=== PATIENT | female | born 1955 | race Caucasian/White ===

== ENCOUNTER 2022-06-08 10:15 | Outpatient (RCR) | payer MEDICARE, BC, SELFPAY | END 2023-05-10 11:10 | disposition home or self-care (01) | PROVIDERS: Visit Provider Physician Assistant | DX: M25.551 Pain in right hip (principal); Z51.89 Encounter for other specified aftercare | CPT/HCPCS: 97110; 97140; 97162 ==

== ENCOUNTER 2022-10-04 15:00 | Outpatient (RCR) | payer MEDICARE, BC, SELFPAY | END 2022-12-16 11:19 | disposition home or self-care (01) | PROVIDERS: PCP Family Medicine; Visit Provider Family Medicine | DX: M25.551 Pain in right hip (principal); Z51.89 Encounter for other specified aftercare | CPT/HCPCS: 97110; 97140; 97162 ==

== ENCOUNTER 2023-01-09 06:13 | Day surgery (SDC) | payer MEDICARE, BC, SELFPAY ==
[2023-01-09 06:26] VITALS: BMI 32.9
[2023-01-09 06:30] VITALS: BP 126/74; PULSE 75; RESP 16; TEMP 37.1; O2SAT 96
[2023-01-09] MEDS: SODIUM CHLORIDE 0.9 % (FLUSH) 10 ML SYRINGE IVF (06:40)
[2023-01-09] MEDS: LACTATED RINGERS 1000 ML 1,000 ML 100 ML IV (06:40)
--- NOTE | 2023-01-09 07:07 | SUR.PREOP ---
Patient provided home covid negative results to RN.
--- NOTE | 2023-01-09 07:14 | W.ANESCHARGE ---
Anesthesia Charges Start Date/Time Anesthesia Start Date: 01/09/23 Anesthesia Start Time: 07:09 Stop Date/Time Anesthesia Stop Date: 01/09/23 Anesthesia Stop Time: 08:38
[2023-01-09] MEDS: BUPIVACAINE 0.5% 30 ML INJECTION (07:15)
--- NOTE | 2023-01-09 07:19 | CRLHL7_ITS ---
For Patients: As a result of the Cures Act, medical imaging exams and procedure reports are released immediately into your electronic medical record. You may view this report before your referring provider. If you have questions, please contact your health care provider. Indication: INTRA OP RIGHT HAMMER TOES Technique: One fluoroscopic image of the right foot. Fluoroscopic time 4.7 seconds. IMPRESSION: Fluoroscopic guidance for hammertoe correction involving the 2nd and 3rd toes. Dictated by Robin Staley MD @ 01/09/2023 9:39:53 AM (Electronically Signed)
--- NOTE | 2023-01-09 07:41 | SUR.OPER ---
TIME OUT PERFORMED PRIOR TO INJECTION OF THE LOCAL IN THE RIGHT FOOT AT 007:14.? ?PATIENT QUESTIONS ANSWERED SATISFACTORILY PREOPERATIVELY.? PATIENT BROUGHT TO OR #1 PER CART.? Patient positioned supine on OR #1 bed.? The perioperative?team supported arms bilaterally on arm boards.? Final approval of positioning by surgeon.?
--- NOTE | 2023-01-09 07:42 | W.ANESCHARGE ---
Anesthesia Charges Start Date/Time Anesthesia Start Date: 01/09/23 Anesthesia Start Time: 07:09 Stop Date/Time Anesthesia Stop Date: 01/09/23 Anesthesia Stop Time: 08:38
[2023-01-09 08:35] VITALS: BP 123/83; PULSE 70; RESP 16; TEMP 36.1; O2SAT 96
--- NOTE | 2023-01-09 08:37 | P.PCN_ITS ---
Procedure Note Date Seen: 01/09/23 Date of procedure: 01/09/23 Will [facility] bill your pro fee for this procedure?: No Pre-op diagnosis: Hammertoes digits 2 through 5 right Post-op diagnosis: same Procedure: hammertoe correction digits 2 through 5 right Procedure Description: Surgeon: Nasir Connor DPM Preoperative diagnosis: 1. Hammertoe deformity 2nd digit right 2. hammertoe deformity 3rd digit right 3. hammertoe deformity 4th digit right 4. hammertoe deformity 5th digit right Postop diagnosis: 1. Hammertoe deformity 2nd digit right 2. hammertoe deformity 3rd digit right 3. hammertoe deformity 4th digit right 4. hammertoe deformity 5th digit right Procedure: 1. Hammertoe Correction 2nd digit right 2. hammertoe correction 3rd digit right 3. Extensor and flexor tenotomy 4th digit right 4. Extensor tenotomy 5th digit right Anesthesia: Mac with local Hemostasis: Ankle tourniquet at 250 mm Hg Estimated blood loss: Less than 10mL Materials: 0.054 smooth K-wires x2 Complications: None apparent Indication for surgery: Patient was in clinic for ongoing painful hammertoe deformities digits 2 through 5 right foot. She has failed conservative care and wishes to proceed with surgical correction. I reviewed the procedure, recovery, expectations and potential complications of surgery. These include but are not limited to: Poor wound healing, infection, under correction, over correction, flail toe, potential need for future surgery, deep venous thrombosis, pulmonary embolism, potential . All questions answered and written consent obtained. Procedure: Patient's from the operative room placed supine position on operating table. IV sedation was initiated local anesthetic injected into the right foot. She was prepped and draped in a sterile fashion. Standard time-out protocol was followed. The right foot was exsanguinated and the tourniquet inflated. Linear incision was made over the PIPJ of the 2nd toe right foot. Incision was carried down through skin subcutaneous tissues. Transverse incision was made through the extensor tendon at the PIPJ and the medial and lateral collateral ligaments were released. An oscillating saw was used to remove the head of the proximal phalanx and the base of the middle phalanx. 0.054 smooth K-wire was introduced into the base of the middle phalanx driven out through the tip of the toe. Fusion site was held together and the K-wire driven retrogradely back into the proximal phalanx. C-arm confirmed position infusion site looked excellent. The Z-lengthening was then performed on the extensor tendon at the level of the MPJ. Wound was thoroughly irrigated normal sterile saline. K-wire was bent cut and capped. The extensor tendon was repaired with 4-0 Vicryl and the skin closed with 4-0 Prolene. Linear incision was made over the PIPJ of the 3rd toe right foot. Incision was carried down through skin subcutaneous tissues. Transverse incision was made through the extensor tendon at the PIPJ and the medial and lateral collateral ligaments were released. An oscillating saw was used to remove the head of the proximal phalanx and the base of the middle phalanx. 0.054 smooth K-wire was introduced into the base of the middle phalanx driven out through the tip of the toe. Fusion site was held together and the K-wire driven retrogradely back into the proximal phalanx. C-arm confirmed position infusion site looked excellent. The Z-lengthening was then performed on the extensor tendon at the level of the MPJ. Wound was thoroughly irrigated normal sterile saline. K-wire was bent cut and capped. The extensor tendon was repaired with 4-0 Vicryl and the skin closed with 4-0 Prolene. Small 1 cm incision was made between the 4th and 5th metatarsal necks. Blunt dissection performed with a hemostat and the extensor tendon 4th toe identified and brought through the incision. The tendon was then transected. Using hemostat we then isolated the extensor tendon the 5th toe and brought it through the incision. The tendon was then transected. This improved the overall position of the 4th and 5th toes. Fourth toe still had flexion deformity. Using a 6100 [place] blade stab incision made plantar 4th toe and the long flexor tendon transected toe improved position. Wounds irrigated with normal sterile saline. Dorsal incision closed with 4-0 Prolene. Sterile dressing was then applied and the tourniquet released. Capillary fill time returned all digits. Patient was transferred from OR to PACU with vital signs stable and vascular status intact. She will be placed into a postsurgical shoe. She is weight- bearing as tolerated. Both written and verbal postop plan instructions given. She is given oxycodone for pain. She will follow up in clinic in 2 days. Anesthesia: MAC and local Surgeon: Nasir Connor DPM Estimated blood loss (mL): 2 Condition: stable Disposition: same day
[2023-01-09 08:45] VITALS: BP 111/65; PULSE 63; RESP 16; O2SAT 96
[2023-01-09 09:00] VITALS: BP 111/69; PULSE 65; RESP 16; O2SAT 99
[2023-01-09 09:14] VITALS: BP 92/60; PULSE 62; RESP 16; TEMP 36.3; O2SAT 99
[2023-01-09] MEDS: HYDROCODONE-ACETAMIN 5-325 MG 1 TAB PO (09:29)
== END 2023-01-09 09:45 | disposition home or self-care (01) ==
PROVIDERS: PCP Family Medicine; Visit Provider Podiatrist
PROC: (CPT 28285; principal; 2023-01-09 07:15)
DX: M20.41 Other hammer toe(s) (acquired), right foot (principal)
CPT/HCPCS: 28285 ×4; 1480; 73620; 76000; A9270; J2250; J2704; J3010; J3490; J7120

== ENCOUNTER 2025-09-02 04:30 | Emergency (ER) | payer MEDICARE, BC, SELFPAY ==
[2025-09-02] VITALS (53 sets, daily range): BP systolic 107–175; BP diastolic 62–89; PULSE 72–129; RESP 12–24; TEMP 36.1–36.6; O2SAT 89–99; BMI 29.5
--- OUTSIDE RECORDS SUMMARY | 2025-09-02 04:32 | XMS_ITS | Clinical Summary ---
Author Organization [email or web address] Address [address] [place] [id number] Care Team Providers Care Director Of Retail Merchandising Name Role Phone Juan Servin MD Primary Care Provider Allergies No known active allergies Medications SUMAtriptan (IMITREX) 50 mg tabletIndicatio ns:Migraine syndrome Take 1 Tablet (50 mg) by mouth every 2 hours if needed for Migraine. Give at minimum 2hrs apart. Max Dose: 200mg per 24hrs. 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 Routine general medical exam ination at a health care facility 10/13/2010 Encounter for screening colonoscopy Encounters Date Type Department Care Team Description 07/25/2025 2:45 PM CDT Ancillary Procedure [facility] [address] [place] [address] 07/25/2025 Travel 07/21/2025 Travel 07/08/2025 2:40 PM CDT Office Visit [facility] [address] [place] [address] Juan Servin MD Headache 07/08/2025 Travel from Last 3 Months Immunizations Immunization Administration Dates Next Due COVID-19 vaccine (Moderna 100mcg/0.5mL) [facility] 12/30/2020,12/02/2020 COVID-19 vaccine (Pfizer-Bio NTech 30mcg/0.3mL) [facility] [place] 08/24/2021 Influenza, High-dose Inactivated 08/26/2024 Influenza, IIV3 (Age >=3 years) 10/13/2011,10/12,09/23/2009 Influenza, IIV4 08/24/2021, 0,08/22/2019,2017,11/26/2015 Influenza, IIV4 (=>6mos) MDV 07/03/2018,06/30/20 18 Influenza, Inactivated AIIV4 (Age 65+ Years) Preserv Free 07/13/2023,08/18/2022 Pneumococcal Conj 20-valent (Prevnar 20) 09/26/2022 Td (Age >=7 Years) 02/08/1991 Tdap 03/10/2015,09/30/2005 Zoster (Shingrix-RZV, recombinant) 02/04/2021, Family History Medical History Relation Name Comments Diabetes Brother 3 Hypertension Father Stroke Father Unknown Son Crohn's disease Cancer-breast No Family History Relation Name Status Comments Brother 1 Alive x5 Brother 2 x1 Brother 3 Father Maternal Grandfather Maternal Grandmother Mother Alive Paternal Grandfather Paternal Grandmother Sister Alive x2 Son Social History Tobacco Use Types Packs/Day Years Used Date Smoking Tobacco: Never Smokeless Tobacco: Never Tobacco Cessation:Counseling Given: Yes Alcohol Use Standard Drinks/Week Comments Yes 0 (1 standard drink = 0.6 oz pur e alcohol) rarely PHQ-2 Answer Date Recorded PHQ-2 TOTAL SCORE 0 09/30/2024 Social Connections Answer Date Recorded Do you often feel lonely or isolated from those around you? 0 09/30/2024 Alcohol Use Answer Date Recorded How often do you have a drink containing alcohol ? 1 07/08/2025 Average Number of Drinks Not on file 025 How often do you have five or more drinks on one occasion? 0 07/08/2025 Financial Resource Strain Answer Date R ecorded Difficulty of Paying Living Expenses 3 09/30/2024 Difficulty of Paying Living Expenses Not on file 09/30/2024 Food Insecurity Answer Date Recorded Do you worry your food will run out before you are able to buy more? 1 09/30/2024 Transportation Needs Answer Date Record ed Does lack of transportation keep you from medica l appointments? 1 09/30/2024 Does lack of transportation keep you from work, meetings or getting things that you need? 1 09/30/2024 Housing Stability Answer Date Recorded What is your housing situation today? 1 09/30/2024 Utilities Answer Date Recorded Do you have trouble paying f or utilities (for example, heat, electricity, water, phone)? 1 09/30/2024 Comments No Sex and Gender Information Value Date Recorded Sex Assigned at Not on file Legal Sex Female 6:30 AM ANIMAL SHELTER MANAGER Gender Identity Not on file Sexual Orientation Not on file Occupation Industry Job Start Date Job End Date [employer] Not on file Not on file Not on file Obstetrics History Para Term AB IAB SAB Ectopic Multiple Livin g Live Births 3 3 3 3 Date Outcome GA Total Labor Labor//3rd Weight Sex Type Anes PTL Mariana A1 A5 Name Clin Term Term Term Comments C section Last Filed Vital Signs Vital Sign Reading Time Taken Comments Blood Pressure 126/70 07/08/2025 3:07 PM CDT Pulse 92 07/08/2025 3:07 PM CDT Temperature 37.1 C (98.7 F) 05/17/2023 2:19 PM CDT Respiratory Rate 18 05/17/2023 2:19 PM CDT Oxygen Saturation 97% 04/09/2025 1:06 PM CDT Inhaled Oxygen Concentration - - Weight 99 kg (218 lb 4.1 oz) 07/08/2025 3:07 PM CDT Height 174 cm (5' 8.5) 09/30/2024 10:27 AM ANIMAL SHELTER MANAGER Body Mass Index 32.7 09/30/2024 10:27 AM ANIMAL SHELTER MANAGER Plan of Treatment Health Maintenance Due Date Last Done Comments Tetanus booster 03/10/2025 03/10/2015, 12/0 06/2005, 02/08/1991 Influenza Vaccine (#1) 2025 , 07/13/2023, 08/18/2022, Additional history exists BMI (ht and wt on same day) for age 18+ 09/30/2025 09/30/2024, 09/27/2023, 12/29/2022, Additional history exists Depression screening for age 12+ 09/30/2025 09/30/2024, 09/27/2023, 09/26/2022, Additional history exists Medicare Wellness for age 65+ 10/01/2025 09/30/2024, 09/27/2023, 09/26/2022 Mammogram for age 45-75 11/08/2025 11/08/19 25, 07/03/2023, 06/29/2023, Additional history exists Lipids for age 45-75 09/25/2029 09/25/2024, 09/20/2023, 09/19/2022, Additional history exists RSV vaccine for adults or (1 - 1-dose 75+ series) 2031 Colonoscopy through age 75 01/11/203201/10, 12/13/2011, 06/27/2007, Additional history exists Hepatitis C screening for age 18-79 Completed 01/15/2014 Zoster (shingles) series for age 50+ Completed 02/04/2021, 10/07/2020 DEXA/DXA scan for age 65+ Completed 2021, 10/31/2019, 08/14/2017 Pneumococcal series for age 50+ Completed 09/26/2022 Hepatitis B series for 19+ Aged Out N o longer eligible based on patient's age to complete this topic Procedures Procedure Name Priority Date/Time Associated Diagnosis Comments MR HEAD BRAIN WWO Routine 07/25/2025 3:2 7 PM CDT Migraine syndrome XR MAMMO SONIA BILAT SCREEN Routine 11/08/2024 8:59 AM ANIMAL SHELTER MANAGER Encounter for other screening for malignant neoplasm of breast LIPID PANEL W REFLEX MEASURED LDL Routine 09/25/2024 8:48 AM ANIMAL SHELTER MANAGER Mixed hyperlipidemia COLONOSCOPY 01/10/2022 8:57 AM CDT XR DXA BONE DENSITY 2 SITES AXIAL Routine 12/02/2021 1:37 PM ANIMAL SHELTER MANAGER Ductal carcinoma in situ (DCIS) of left breast ANTI HCV Routine 01/15/2014 10:37 AM CDT Need for hepatitis C screening test from Last 3 Months or Most Recently Relevant to Health Maintenance Results * MR HEAD BRAIN WWO (07/25/2025 3:27 PM CDT) Anatomical Region Laterality Modality BRAIN, HEAD Magnetic Resonan ce 07/26/2025 9:00 AM CDT Impressions 07/26/2025 9:00 AM CDT 1. No acute intracranial abnormality 2. Stable dysgenesis of the corpus callosum. 3. No abnormal enhancement or enhancing lesions Dictated by Cristhian Mendez MD @ 07/26/2025 9:00:05 AM (Electronically Signed) Narrative 07/26/2025 9:00 AM CDT For Patients: As a result of the Cures Act, medical imaging exams and procedure reports are released immediately into your electronic medical record. You may view this report before your referring provider. If you have questions, please contact your health care provider. INDICATION: Migraine headaches. COMPARISON: 10/10/2018. TECHNIQUE: Multiplanar T1, T2, FLAIR and diffusion-weighted imaging.. Post gadolinium T1 weighted sequences. Gadolinium 19 cc IV FINDINGS: Stable dysgenesis of the corpus callosum. Remainder of the brain parenchyma morphology is normal. No abnormal ventricular dilatation. Few scattered foci of T2 signal within the white matter both supra hemispheres a nonspecific and may represent chronic deep white matter small ischemic changes. No intracranial hemorrhage. Intracranial vascular flow voids are grossly preserved. No mass effect or midline shift. No restricted diffusion to suggest acute ischemia. No susceptibility artifact of remote hemorrhage No abnormal enhancement or enhancing lesions. Bilateral orbits are unremarkable. Normal appearing sella. Visualized paranasal sinuses mastoid air cells are unremarkable. Procedure Note Cristhian Mendez MD, PhD - 07/26/2025 For Patients: As a result of the Cures Act, medical imagingexams and procedure reports are released immediately into your electronicmedical record. You may view this report before your referring provider.If you have questions, please contact your health care provider. INDICATION: Migraine headaches. COMPARISON: 10/10/2018. TECHNIQUE: Multiplanar T1, T2, FLAIR and diffusion-weighted imaging.. Post gadoliniumT1 weighted sequences. Gadolinium 19 cc IV FINDINGS: Stable dysgenesis of the corpus callosum. Remainder of the brainparenchyma morphology is normal. No abnormal ventricular dilatation. Few scattered foci of T2 signal within the white matter both suprahemispheres a nonspecific and may represent chronic deep white mattersmall ischemic changes. No intracranial hemorrhage. Intracranial vascular flow voids are grosslypreserved. No mass effect or midline shift. No restricted diffusion to suggest acute ischemia. No susceptibility artifact of remote hemorrhage No abnormal enhancement or enhancing lesions. Bilateral orbits are unremarkable. Normal appearing sella. Visualized paranasal sinuses mastoid air cells are unremarkable. IMPRESSION: 1. No acute intracranial abnormality 2. Stable dysgenesis of the corpus callosum. 3. No abnormal enhancement or enhancing lesions Dictated by Cristhian Mendez MD @ 07/26/2025 9:00:05 AM (Electronically Signed) Juan Servin MD MR Final R esult * XR MAMMO SONIA BILAT SCREEN (11/08/2024 8:59 AM ANIMAL SHELTER MANAGER) Anatomical Region Laterality Modality BREASTS, Breast Left, Breast Right Bilateral Mammography Impressions 11/08/2024 2:11 PM ANIMAL SHELTER MANAGER There is no radiographic evidence for malignancy. Recommend annual mammograms. MAMMOGRAM ASSESSMENT: ACR 2 Benign PATIENTS: You will also receive a letter with your examination results in an easy to read format. If you have questions about your results, please contact your referring provider. Narrative 11/08/2024 2:11 PM ANIMAL SHELTER MANAGER For Patients: As a result of the 21st Century Cures Act, medical imaging exams and procedure reports are released immediately into your electronic medical record. You may view this report before your referring provider. If you have questions, please contact your health care provider. XR MAMMO SONIA BILAT SCREEN [[id number]] CLINICAL HISTORY: This is an asymptomatic 69 y.o. patient. INDICATION FOR EXAM: Mammogram Screening. TECHNIQUE: CC & MLO views were obtained. This study was evaluated with the assistance of Computer-Aided Detection. Breast Tomosynthesis was used in interpretation. COMPARISON FILMS: Yes 06/29/23 FINDINGS: The breasts are heterogeneously dense, which may obscure small masses. No suspicious masses or microcalcifications. There are benign appearing calcifications., There are post surgical changes of right breast, and Post biopsy changes of left breast. Juan Servin MD MAMMO Final R esult * (ABNORMAL) LIPID PANEL W REFLEX MEASURED LDL (09/25/2024 8:48 AM ANIMAL SHELTER MANAGER) [facility] CHOLESTEROL, TOTAL 208(H) <200 mg/dL [facility] HDL CHOLESTEROL 65 > OR = 50 mg/dL [facility] TRIGLYCERIDES 93 <150 mg/dL [facility] LDL-CHOLESTEROL 124(H) mg/dL (calc) [facility] Comment: Reference range: <100 Desirable range <100 mg/dL for primary prevention; <70 mg/dL for patients with CHD or diabetic patients with > or = 2 CHD risk factors. LDL-C is now calculated using the Jerrell calculation, which is a validated novel method providing better accuracy than the Friedewald equation in the estimation of LDL-C. Deng SS et al. YUDELKA. 2013;310(19): 8605-2182 (http://education.Bettyvision/faq/UNE396) CHOL/HDLC RATIO 3.2 <5.0 (calc) [facility] NON HDL CHOLESTEROL 143(H) <130 mg/dL (calc) [facility] Comment: For patients with diabetes plus 1 major ASCVD risk factor, treating to a non-HDL-C goal of <100 mg/dL (LDL-C of <70 mg/dL) is considered a therapeutic option. Blood BLOOD SPECIMEN / Unknown 09/25/2024 8:48 AM ANIMAL SHELTER MANAGER 09/25/2024 8:49 AM ANIMAL SHELTER MANAGER Narrative [facility] [facility] - 09/26/2024 4:00 AM ANIMAL SHELTER MANAGER FASTING:UNKNOWN FASTING: UNKNOWN Juan Servin MD CHEMISTRY Final R esult [employer] [facility] [address] [place] [address], [facility] [address] [place] [address] * COLONOSCOPY (01/10/2022 8:57 AM CDT) 01/10/2022 8:57 AM CDT Narrative Transcriptions Shady Ding MD - 01/10/2022 9:54 AM CDT Patient Name: Elizabeth Orellana Procedure Date: 01/10/2022 Gender: Female Date of : 1955 Admit Type: Ambulatory Procedure: Colonoscopy Proceduralist: [facility] Indications/Pre-Op Diagnosis: Screening for colorectal malignantneoplasm Medications: Propofol per Anesthesia, GeneralAnesthesia Procedure Description: The patient had risks, benefits and alternatives explained to andgave informed consent. The patient had a stable cardiopulmonary status and judged an adequate candidate for conscious sedation. The colonoscope was passed through the anus and advanced to thececum, identified by appendiceal orifice and ileocecal valve. Thecolonoscopy was performed without difficulty. The patient tolerated the procedure well. The quality of the bowel preparation was fair. The ileocecal valve, appendiceal orifice, and rectum were photographed. Complications: No immediate complications. Estimated Blood Loss & Specimen: Estimated blood loss: none. Specimen collected - None Findings: The perianal and digital rectal examinations were normal. The colon (entire examined portion) appeared normal. The retroflexed view of the distal rectum and anal verge was normaland showed no anal or rectal abnormalities. Retroflexion in the right colon was performed. Impressions/Post-Op Diagnosis: - Preparation of the colon was fair. - The entire examined colon is normal. - No specimens collected. Recommendation: - Discharge patient to home. - Resume previous diet. - Continue present medications. - Repeat colonoscopy in 10 years for surveillance. Moderate Sedation: See the other procedure note for documentation of moderate sedationwith intraservice time. Shady Ding, 01/10/2022 9:54:18 AM This report has been signed electronically. Note Initiated On: 01/10/2022 8:57 AM us Shady Ding MD PROCEDURE ORD Final Res ult * XR DXA BONE DENSITY 2 SITES AXIAL (12/02/2021 1:37 PM ANIMAL SHELTER MANAGER) Anatomical Region Laterality Modality Spine, HIPS, HIPL, HIPR Computed Radiography Impressions 12/02/2021 4:54 PM ANIMAL SHELTER MANAGER Normal bone density. No significant change in bone density compared to 2020. RECOMMENDATIONS: The National Osteoporosis Foundation recommends pharmacologic treatment for patients with T-scores of -2.5 or less, patients with prior history of fragility fractures, or patients with 10-year probability of greater than 3% at hips or greater than 20% of suffering major osteoporotic fractures. Recommend continued optimization of calcium and vitamin D intake through dietary means and/or supplementation and regular exercise. Repeat scan recommended in 2 years. Narrative 12/02/2021 4:54 PM ANIMAL SHELTER MANAGER For Patients: Results are automatically released to your [email or web address] ([email or web address]) account once available, in compliance with federal regulations. This means that you may see your results before your provider has had a chance to review them. Please allow 2-3 business days for your provider to comment on the results. XR DXA Bone Mineral Density (BMD) EXAM LOCATION: [address] [id number] PATIENT NAME: Elizabeth Romero Mode DATE OF : 1955 EXAM DATE: 12/02/2021 REQUESTING PROVIDER: Katiana Serrano NP GENDER AT : female HEIGHT: 5' 9 (05/04/2021) WEIGHT: 219 lb (08/24/2021) MENOPAUSAL STATUS: Postmenopausal RACE/ETHNICITY: White RISK FACTORS: Aromatase Inhibitor CURRENT MEDICATION FOR BONE LOSS: NONE INDICATION: Post-Menopause COMPARISON DATE(S): 2019 DXA scans are compared to prior studies for a patient only when the two (or more) studies were performed on the same scanner. It is not possible to compare data generated on one scanner to data from another because there are not standards in DXA equipment. This applies even if the two scanners are made by the same web content manager. PROCEDURE: Dual-energy x-ray absorptiometry performed with routine technique. Reporting is completed in the form of a T-score. The T-score represents the standard deviation from peak bone mass based on young healthy adult. A Z-score is used for diagnosis in premenopausal women, and for men under the age of 50. FINDINGS: RESULT LUMBAR SPINE L1 - L4 BMD: 1.207 g/cm2 T-Score: + 0.3 Change from prior in 2020: Increase 2.8%. RESULTS FEMUR Left femoral neck BMD: 0.980 g/cm2 T-Score: - 0.4 Change from prior in 2020: Increase 2.6%. Right femoral neck BMD: 1.046 g/cm2 T-Score: + 0.1 Change from prior in 2020: Decrease 0.2%. Left hip BMD: 1.042 g/cm2 T-Score: + 0.3 Change from prior in 2020: Increase 2.9%. Right hip BMD: 1.098 g/cm2 T-Score: + 0.7 Change from prior in 2020: Increase 0.2%. WHO criteria: Normal: T-score at or above -1 SD Osteopenia: T-score between -1.1 and -2.4 SD Osteoporosis: T-score at or below -2.5 SD us Katiana Serrano NP DEXA Final Result * ANTI HCV [[id number]] (01/15/2014 10:37 AM CDT) ANTI HCV Non-reacti ve [facility] Blood specimen (specimen) BLOOD SPECIMEN / Unknown 01/15/2014 10:37 AM CDT 01/15/2014 10:29 AM CDT us Juan Servin MD SEND OUTS Final R esult [facility] INTERNAL ZIP [id number] [place] [phone] from Last 3 Months or Most Recently Relevant to Health Maintenance Insurance [employer] [place] [employer] [place] [employer] [place] ONLY MEDICARE PART B HB ONLY [employer] [place] [employer] ONLY WORKERS COMP Advance Directives * Full Code (Latest Code Status on File) Date Activated Date Inactivated Comments 01/10/2022 7:59 AM 01/10/2022 1:10 PM Question Answer Comments Code Status Discussion: Per Existing Order * Full Code Date Activated Date Inactivated Comments 05/31/2017 6:27 PM 05/31/2017 11:00 PM * Full Code Date Activated Date Inactivated Comments 05/31/2017 9:03 AM 05/31/2017 6:09 PM Care Teams Director Of Retail Merchandising Relationship Specialty Start Date End Date Juan Servin MD [address] [place] [address] PCP - General 12/11/12
--- NOTE | 2025-09-02 05:11 | ED.ABDPAIN ---
HPI - Abdominal Pain General Time Seen by Provider: 05:12 Date Seen: 09/02/25 Chief Complaint: Abdominal Pain Stated Complaint: severe abdominal pain Time Seen by Provider: 09/02/25 04:58 Source: patient and RN notes reviewed Mode of arrival: ambulatory Limitations: no limitations History of Present Illness HPI narrative: This 69-year-old female is ambulatory to the ER with complaint of severe left abdominal and side pain. Monday night around 11:00 p.m. she developed left lower quadrant pain radiating to her flank and low back. She has had nausea and vomiting with this. There has been no fevers. She has had normal urination, normal bowel habits. She tried Motrin around 2:00 a.m. without any relief. Pain is reportedly 10/10. She has not had any history of kidney stones but did consider that that might be the cause of her symptoms. She has had no abdominal surgery before. MD elicited complaint: abdominal pain Related Data Home Medications ?Medication ?Instructions ?Recorded ?Confirmed hydrocortisone 2.5 % topical topical 09/02/25 ointment mupirocin 2 % topical ointment 1 applic topical BID-TID 09/02/25 09/02/25 sumatriptan succinate 50 mg tablet 50 mg PO Q2H PRN migraine 09/02/25 09/02/25 Allergies Allergy/AdvReac Type Severity Reaction Status Date / Time No Known Drug Allergies Allergy Verified 01/09/23 06:26 Review of Systems Status of ROS Reports: 6 or more systems reviewed and unremarkable except as noted in History and below PFSH PFS Medical History Menopausal state ?N95.1 - Menopausal and female climacteric states (ICD-10) Macular degeneration ?H35.30 - Unspecified macular degeneration (ICD-10) 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 - Intraductal carcinoma in situ of left breast (ICD-10) Surgical History Hx of arthroscopy of right knee ?Z98.890 - Other specified postprocedural states (ICD-10) Hx of inguinal hernia repair ?Z98.890 - Other specified postprocedural states (ICD-10) ?Z87.19 - Personal history of other diseases of the digestive system (ICD-10) Hx of hysterectomy ?Z90.710 - Acquired absence of both cervix and uterus (ICD-10) Hx of section ?Z98.891 - History of uterine scar from previous surgery (ICD-10) History of lumpectomy of left breast ?Z98.890 - Other specified postprocedural states (ICD-10) Hx of bladder repair surgery ?Z98.890 - Other specified postprocedural states (ICD-10) Social History Smoking Status: Never smoker How often do you have a drink containing alcohol: monthly or less How many standard drinks containing alcohol do you have on a typical day: 1 or 2 How often do you have six or more drinks on one occasion: Never AUDIT-C Alcohol total score: 1 Non-prescribed substance use: denies use Caffeine: Yes (coffee) Are you using contraception or practicing any form of control: No (menopause/hyst) Exam Const: Vital Signs, click to edit/add: Vital Signs - 24 hr 09/02/25 05:01 09/02/25 05:24 09/02/25 07:40 Temperature 96.9 F L Pulse Rate 104 H Pulse Rate [Right Pulse Oximeter] 72 Respiratory Rate 24 Blood Pressure 136/62 Blood Pressure [Le ft Upper Arm] 153/86 H Blood Pressure [Ri ght Upper Arm] 153/86 H Pulse Oximetry 96 96 99 Oxygen Delivery Me thod Room Air 09/02/25 07:55 09/02/25 08:02 09/02/25 08:32 Temperature 97.8 F Pulse Rate 102 H 102 H Pulse Rate [Right Pulse Oximeter] Respiratory Rate 20 16 Blood Pressure 156/88 H 160/79 H Blood Pressure [Le ft Upper Arm] Blood Pressure [Ri ght Upper Arm] Pulse Oximetry 94 94 Oxygen Delivery Me thod This 69-year-old female is alert, interactive, definitely seems to be in pain. Is holding an emesis bag with some bilious emesis. She is very pleasant but in obvious discomfort. Sclera clear, symmetrical facial function, able to speak in complete sentences. Lungs are clear, good air entry, no wheezing or crackles, tachypnea, no accessory muscle use. CV regular rate and rhythm, no murmur. Abdomen is soft, nontender, nondistended, no organomegaly, no rebound or guarding. I cannot reproduce patient's pain on examination. Documenting provider has reviewed patient's vital signs: yes Course Course ED Course: This patient is having significant discomfort that came on suddenly, associated with nausea and vomiting. I certainly do think that urinary pathology with kidney stones is very high in the differential. We will try to control her symptoms with Zofran and Toradol. We will get appropriate labs, collect urinalysis when she is able. We are going to do CT of her abdomen pelvis noncontrast. Seems less likely that this would be something GI like diverticulitis. CT imaging will certainly help us elucidate differential. Patient understands that we may want IV contrast subsequently. Reevaluation(s) Time of Reevaluation #1: 06:18 Reevaluation #1: Patient is having increased pain and nausea. Reviewed with her that there is a kidney stone along the left bladder. Will give her 4 mg IV morphine, re-dose the Zofran. We cannot get pain control, patient may actually need urologic intervention. Time of Reevaluation #2: 06:45 Reevaluation #2: Patient is definitely feeling better after the morphine. She states that last wave of pain was quite intense. We did discuss the size of her kidney stone. There is a chance that this may not pass without intervention. We are going to try oxycodone and Tylenol, give her dose of Flomax. We have discussed the rationale for this. If she is tolerating the pain with this management, she can do a trial of outpatient management at home, follow up with her primary and get a referral to Urology. She understands that we do not have Urology here. If her pain is unmanageable, may need transfer for urologic intervention. We still need to collect urine for urinalysis at this point. Time of Reevaluation #3: 06:53 Reevaluation #3: Patient is retching again, crying in pain. Have ordered 2 mg IV morphine. She did not get the orals yet but will still have those provided. It is looking more likely that this patient may fail outpatient management. Additional Reevaluation(s): 8:05 a.m.: Patient has had ongoing pain, do not feel that we are able to get her to an acceptable level of pain tolerance for discharge to home. I unfortunately think she is going to need transfer for urologic evaluation. Will be calling [place]. Consultations Consultation #1: Have spoken with the hospitalist at [place] Dr. Dunne. She accepts this patient. We did discuss the elevated white count, she would prefer antibiotics be initiated so that we not miss infection. 2 g IV Rocephin was ordered. Time: 08:22 Vital Signs Vital signs: Initial Vital Signs Temperature 96.9 F L 09/02/25 05:01 Temperature Source Temporal Artery Scan 09/02/25 05:01 Pulse Rate 72 09/02/25 05:01 Pulse Rhythm Regular 09/02/25 05:01 Respiratory Rate 24 09/02/25 05:01 Blood Pressure 153/86 H 09/02/25 05:01 Blood Pressure Mean 108 H 09/02/25 05:01 Blood Pressure Position Supine 09/02/25 05:01 Pulse Oximetry 96 09/02/25 05:01 Oxygen Delivery Method Room Air 09/02/25 05:01 Vital Signs Temperature 96.9 F L 09/02/25 05:01 Pulse Rate 72 09/02/25 05:01 Respiratory Rate 24 09/02/25 05:01 Blood Pressure 153/86 H 09/02/25 05:01 Pulse Oximetry 96 09/02/25 05:01 Oxygen Delivery Method Room Air 09/02/25 05:01 Temperature 97.8 F 09/02/25 07:55 Pulse Rate 98 09/02/25 19:17 Respiratory Rate 16 09/02/25 19:17 Blood Pressure 120/68 09/02/25 19:17 Pulse Oximetry 97 09/02/25 19:17 Oxygen Delivery Method Room Air 09/02/25 19:17 Medications Administered Medications: Discontinued Medications Generic Name Dose Route Start Last Admin Trade Name Freq PRN Reason Stop Dose Admin Acetaminophen 1,000 mg 09/02/25 06:46 09/02/25 07:25 Acetaminophen 500 Mg Tablet PO 09/02/25 06:47 1,000 mg ONCE ONE Administration Sodium Chloride 1,000 mls @ 500 mls/hr 09/02/25 05:15 09/02/25 07:56 0.9 % Sodium Chloride 1000 Ml IV 09/02/25 07:14 Infused .Q2H JAN Infusion Ceftriaxone Sodium 2 gm/ 100 mls @ 200 mls/hr 09/02/25 08:26 09/02/25 09:25 Sodium Chloride IVPB 09/02/25 08:27 Infused ONCE ONE Infusion Ketorolac Tromethamine 15 mg 09/02/25 05:15 09/02/25 05:33 Ketorolac 15 Mg/Ml Inj IVP 09/02/25 05:16 15 mg ONCE ONE Administration Morphine Sulfate 4 mg 09/02/25 06:18 09/02/25 06:27 Morphine 4 Mg/Ml Inj IVP 09/02/25 06:19 4 mg ONCE ONE Administration Morphine Sulfate 2 mg 09/02/25 06:53 09/02/25 07:24 Morphine 2 Mg/Ml Inj IVP 09/02/25 06:54 2 mg ONCE ONE Administration Morphine Sulfate 2 mg 09/02/25 08:47 09/02/25 19:06 Morphine 2 Mg/Ml Inj IVP 2 mg Q2H PRN Administration Ondansetron HCl 4 mg 09/02/25 05:15 09/02/25 05:36 Ondansetron 2 Mg/Ml Inj IVP 09/02/25 05:16 4 mg ONCE ONE Administration Ondansetron HCl 4 mg 09/02/25 06:18 09/02/25 06:26 Ondansetron 2 Mg/Ml Inj IVP 09/02/25 06:19 4 mg ONCE ONE Administration Oxycodone HCl 5 mg 09/02/25 06:46 09/02/25 07:25 Oxycodone 5 Mg Tablet PO 09/02/25 06:47 5 mg ONCE ONE Administration Tamsulosin HCl 0.4 mg 09/02/25 06:46 09/02/25 07:25 Tamsulosin Hcl 0.4 Mg Capsule PO 09/02/25 06:47 0.4 mg ONCE ONE Administration MDM - Abdominal Pain Lab Data Attestation: I reviewed the patient's lab results. Labs: Lab Results 09/02/25 09/02/25 Range/Units 05:15 05:20 WBC 15.06 H (4.50-11.00) K/uL RBC 5.51 H (4.00-5.20) m/uL Hgb 12.4 (12.0-16.0) gm/dL Hct 40.8 (33.0-51.0) % MCV 74 L (80-100) fL MCH 23 L (26-34) pg MCHC 30 L (32-36) gm/dL RDW Coeff of Kiara 16.6 H (11.5-15.5) % Plt Count 315 (140-440) K/uL Neut % (Auto) 87.1 H (42.0-72.0) % Lymph % (Auto) 7.2 L (20-44) % [place] % (Auto) 4.6 (0.0-11.0) % Eos % (Auto) 0.5 (0.0-7.0) % Baso % (Auto) 0.5 (0.0-3.0) % Neut # (Auto) 13.10 H (1.7-7.0) K/uL Lymph # (Auto) 1.10 (0.90-2.90) K/uL [place] # (Auto) 0.70 (0.00-0.90) K/UL Eos # (Auto) 0.10 (0.00-0.50) K/uL Baso # (Auto) 0.10 (0.00-0.30) K/uL Abs Immat Gran (auto) 0.00 (0.00-0.30) K/uL Imm/Tot Granulo (auto) 0.1 % Sodium 137 (135-149) mmol/L Potassium 4.1 (3.6-5.1) mmol/L Chloride 103 (96-114) mmol/L Carbon Dioxide 24 (20-32) mmol/L Anion Gap 10 (7-15) mEq/L BUN 13 (7-30) mg/dL Creatinine 0.7 (0.5-1.5) mg/dL Estimated Creat Clear 56.27 Estimated GFR 94 ml/min Glucose 151 H (60-115) mg/dL Lactate 2.3 H (0.5-1.9) mmol/L Calcium 9.1 (8.4-10.6) mg/dL C-Reactive Protein < 0.5 L (0.5-1.0) mg/dL Urine Color Yellow (Yellow) Urine Appearance Clear (Clear) Urine pH 7.0 (5.0-8.5) Ur Specific [place] 1.020 (1.000-1.030) Urine Protein Negative (Negative) Urine Glucose (UA) Negative (Negative) Urine Ketones Negative (Negative) Urine Blood Trace-intact A (Negative) Urine Nitrite Negative (Negative) Urine Bilirubin Negative (Negative) Urine Urobilinogen 0.2 (0.2-1.0) Ur Leukocyte Esterase Negative (Negative) Urine RBC 0-2 (0-2) Urine WBC 2-5 (0-5) Ur Squamous Epith Cells Few (None-Few) Urine Bacteria Moderate A (None) Imaging Data CT scan - abdomen: Attestation: I have reviewed the pertinent imaging results. My impression: Did visualize her CT, can definitely see the hydronephrosis and the stone as subsequently noted by radiologist. Radiologist's impression: Patient: GUS LIU Facility:?[facility] Patient ID:?[id number] Site Patient ID:?[id number]. Site :?[id number] Study:?CT-Abdomen/Pelvis W/O-09/02/2025 5:35:44 AM Ordering Physician:Frantz Araujo Final Report: INDICATION: Left abdomen and flank pain with nausea and vomiting. TECHNIQUE: CT abdomen and pelvis without contrast. COMPARISON: January 08, 2020. FINDINGS: Lower chest: Unremarkable. Liver: Normal in size and attenuation. No suspicious masses. Gallbladder and bile ducts: There are gallbladder stones. Otherwise unremarkable. Pancreas: Unremarkable. No mass or inflammation. Spleen: Normal in size. No masses. Adrenal glands: Normal in size. No nodules. Kidneys: A 6 x 3 mm stone at the left ureteropelvic junction is causing mild hydronephrosis. No other stones. GI tract: Unremarkable. Normal in caliber. No sign of mass or inflammation. Vasculature: Abdominal aorta is normal in caliber. Lymph nodes: No lymphadenopathy. Peritoneum/Abdominal Wall: There is diastasis of the lower rectus abdominus muscles, similar to the prior exam. No free or fluid collection. Pelvis: Unremarkable. No pelvic masses. Bones: Unremarkable for age. IMPRESSION: 6 x 3 mm stone at the left UPJ causing mild hydronephrosis. Please note that all CT scans at this facility use dose modulation, iterative reconstruction, and/or weight-based dosing when appropriate to reduce radiation dose to as low as reasonably achievable. Dictated by Mika Gorman MD @ 09/02/2025 5:44:27 AM (Electronic Signature) Discharge Plan Discharge Clinical Impression: Renal colic on left side, Obstruction of left ureteropelvic junction (UPJ) due to stone Patient Disposition: Xfer [facility] Discharge Location: [facility] Prescriptions: No Action sumatriptan succinate 50 mg tablet 50 mg PO Q2H PRN (Reason: migraine) mupirocin 2 % ointment 1 applic topical BID-TID hydrocortisone 2.5 % ointment topical Stand Alone Forms: [employer] Info Instructions
--- NOTE | 2025-09-02 05:15 | CRLHL7_ITS ---
For Patients: As a result of the Century Cures Act, medical imaging exams and procedure reports are released immediately into your electronic medical record. You may view this report before your referring provider. If you have questions, please contact your health care provider. INDICATION: Left abdomen and flank pain with nausea and vomiting. TECHNIQUE: CT abdomen and pelvis without contrast. COMPARISON: January 08, 2020. FINDINGS: Lower chest: Unremarkable. Liver: Normal in size and attenuation. No suspicious masses. Gallbladder and bile ducts: There are gallbladder stones. Otherwise unremarkable. Pancreas: Unremarkable. No mass or inflammation. Spleen: Normal in size. No masses. Adrenal glands: Normal in size. No nodules. Kidneys: A 6 x 3 mm stone at the left ureteropelvic junction is causing mild hydronephrosis. No other stones. GI tract: Unremarkable. Normal in caliber. No sign of mass or inflammation. Vasculature: Abdominal aorta is normal in caliber. Lymph nodes: No lymphadenopathy. Peritoneum/Abdominal Wall: There is diastasis of the lower rectus abdominus muscles, similar to the prior exam. No free or fluid collection. Pelvis: Unremarkable. No pelvic masses. Bones: Unremarkable for age. IMPRESSION: 6 x 3 mm stone at the left UPJ causing mild hydronephrosis. Please note that all CT scans at this facility use dose modulation, iterative reconstruction, and/or weight-based dosing when appropriate to reduce radiation dose to as low as reasonably achievable. Dictated by Mika Gorman MD @ 09/02/2025 5:44:27 AM (Electronically Signed)
[2025-09-02 05:24] LABS: Lactate* 2.3 mmol/L (0.5-1.9)
[2025-09-02 05:26] LABS: Hematocrit* 40.8 % (33.0-51.0); Hemoglobin* 12.4 gm/dL (12.0-16.0); Immature Granulocytes Abs Auto 0.00 K/uL (0.00-0.30); Immature Granulocytes Pct Auto 0.1 %; Lymphocytes Absolute Auto 1.10 K/uL (0.90-2.90); Mean Corpuscular HGB Conc 30 gm/dL (32-36); Mean Corpuscular Hemoglobin 23 pg (26-34); Mean Corpuscular Volume 74 fL (80-100); RDW Coefficient of Variation % 16.6 % (11.5-15.5); Red Blood Count* 5.51 m/uL (4.00-5.20); Slide Review Reflex No; White Blood Count* 15.06 K/uL (4.50-11.00)
[2025-09-02] MEDS: ONDANSETRON 2 MG/ML inj 4 MG IVP ×2 (05:36→06:26)
[2025-09-02 05:39] LABS: Chloride* 103 mmol/L (96-114); Potassium* 4.1 mmol/L (3.6-5.1); Sodium* 137 mmol/L (135-149)
[2025-09-02 05:43] LABS: Anion Gap 10 mEq/L (7-15); Blood Urea Nitrogen* 13 mg/dL (7-30); Calcium* 9.1 mg/dL (8.4-10.6); Carbon Dioxide* 24 mmol/L (20-32); Creatinine* 0.7 mg/dL (0.5-1.5); Est. Creatinine Clearance* 56.27; Estimated Glomerular Filt Rate 94 ml/min; Glucose* 151 mg/dL (60-115)
[2025-09-02] MEDS: MORPHINE 4 MG/ML INJ IVP (06:27)
[2025-09-02 07:16] LABS: Appearance Urine Clear (Clear)
[2025-09-02] MEDS: TAMSULOSIN HCL 0.4 MG CAPSULE PO (07:25)
[2025-09-02] MEDS: ACETAMINOPHEN 500 MG TABLET 1000 MG PO (07:25)
[2025-09-02] MEDS: cefTRIAXone 2 GM in 0.9 % SODIUM CHLORIDE Mini-bag 100 ML IVPB (08:32)
== END 2025-09-02 19:38 | disposition short-term general hospital (02) ==
PROVIDERS: Emergency Provider Family Medicine; PCP Family Medicine
DX: N23 Unspecified renal colic (principal); N13.5 Crossing vessel and stricture of ureter without hydronephrosis
CPT/HCPCS: 36415; 74176; 80048; 81001; 83605; 85025; 86140; 87086; 94761; 96361; 96365; 96375; 99284; 99285; A9270; J0696; J1885; J2270; J2405; J7030

== ENCOUNTER 2025-09-02 19:18 | Outpatient (CLI) | payer MEDICARE, BC, SELFPAY | END 2025-09-02 19:19 | disposition home or self-care (01) | LOC: AMB 09-06 19:59 | PROVIDERS: PCP Family Medicine; Visit Provider Family Medicine | DX: N23 Unspecified renal colic (principal); N20.1 Calculus of ureter | CPT/HCPCS: A0425; A0427 ==